=== PATIENT | male | born 1965 | race Caucasian/White ===

== ENCOUNTER 2021-03-25 08:04 | Emergency (ER) | payer MEDICAID ==
[~2021-03-25] VITALS: Ht 177.8 cm; Wt 58.1 kg
[2021-03-25 08:12] VITALS: BP 129/83
--- NOTE | 2021-03-25 08:17 | NUR ---
TO ER CHAIR 1 Awaiting md anderson
--- NOTE | 2021-03-25 08:23 | NUR ---
AT BEDSIDE FOR EVAL.
[2021-03-25] MEDS ORDERED: CLIN300C12 PO (08:30)
[2021-03-25] MEDS ORDERED: CLINDAMYCIN HCL 150 MG CAPSULE PO ONE ×2 (08:30)
--- NOTE | 2021-03-25 08:36 | NUR ---
Patient given written and verbal discharge instructions. Patient verbalizes understanding of instructions. Patient is ambulatory with steady gait. Refuses offer of intermediate placement. Patient given list of available shelters in surrounding area.
== END 2021-03-25 08:38 | disposition home or self-care (01) ==
LOC: ER 08:12
DX: L03.113 Cellulitis of right upper limb (principal); F19.10 Other psychoactive substance abuse, uncomplicated; F17.200 Nicotine dependence, unspecified, uncomplicated; Z88.0 Allergy status to penicillin; Z60.2 Problems related to living alone